=== PATIENT | male | born 1960 | race African-American/Black ===

== ENCOUNTER 2016-05-28 17:06 | Inpatient (IN) | payer MEDICAID ==
[~2016-05-28] VITALS: Ht 180.3 cm; Wt 176.9 kg
[2016-05-28] MEDS ORDERED: SODIUM CHLORIDE 0.9% 1000ML BAG (SEPSIS BOLUS) IV ONE (18:30)
[2016-05-28 19:04] LABS: CLARITY URINE CLEAR (CLEAR); COLOR URINE YELLOW (YELLOW); GLUCOSE URINE NEGATIVE (NEGATIVE); KETONES URINE TRACE (NEGATIVE); LEUKOCYTE ESTERASE URINE NEGATIVE (NEGATIVE); NITRITE URINE NEGATIVE (NEGATIVE); OCCULT BLOOD URINE NEGATIVE (NEGATIVE); PROTEIN URINE 1+ (NEGATIVE); SPECIFIC GRAVITY URINE 1.016 (1.005-1.030)
[2016-05-28 19:21] LABS: BACTERIA URINE TRACE; MUCUS URINE TRACE /lpf (NONE/TRACE); RBC URINE 0-2 /hpf (0-2); SQUAMOUS EPITHELIAL CELL URINE FEW /lpf (RARE/1+); WBC URINE 0-2 /hpf (0-2)
[2016-05-28 19:26] LABS: BASOPHILS % 0.7 % (0.0-2.0); DIFFERENTIAL COMMENT 0; EOSINOPHILS % 0.1 % (0.0-5.0); HEMATOCRIT. 48.2 % (42.0-52.0); HEMOGLOBIN. 14.7 g/dL (14.0-18.0); LYMPHOCYTES % 14.7 % (20.0-50.0); MEAN CORPUSCULAR HEMOGLOBIN 24.1 pg (28.0-32.0); MEAN CORPUSCULAR HGB CONC 30.4 g/dL (31.0-37.0); MEAN CORPUSCULAR VOLUME 79.4 fL (80.0-94.0); MEAN PLATELET VOLUME 9.6 fl (7.4-10.4); MONOCYTES % 9.1 % (2.0-8.0); NEUTROPHILS % 75.4 % (40.0-76.0); PLATELET 241 x1000/uL (130-400); RED BLOOD CELL COUNT 6.07 mill/uL (4.7-6.1); WHITE BLOOD COUNT 7.3 x1000/uL (4.5-11.0)
[2016-05-28 19:31] LABS: INR 1.3; PROTHROMBIN TIME 13.2 sec
[2016-05-28 19:41] LABS: ALANINE AMINOTRANSFERASE 97 IU/L (13-61); ANION GAP 14; CALCIUM 8.3 mg/dL (8.5-10.1); CARBON DIOXIDE 35 mEq/L (21-32); CHLORIDE 99 mEq/L (98-107); INDEX HEMOLYSI 1 (1-3); INDEX ICTERIC 1 (1-4); INDEX LIPEMIC 1 (1-3); UREA NITROGEN BLOOD 40 mg/dL (7-21); eGFR 55 mL/min (>60)
[2016-05-28 19:42] LABS: LACTIC ACID 2.4 mmol/L (0.4-2.0)
[2016-05-28 19:48] LABS: NT PRO B-TYPE NATRIURETIC PEP 8925 pg/mL (5-125)
[2016-05-28 19:52] LABS: TROPONIN I 0.43 ng/mL (0.00-0.04)
[2016-05-28] MEDS ORDERED: PIPERACILLIN SODIUM/TAZOBACTAM 4.5 G in DEXT 5% WATER 100 ML IV NR (20:30)
[2016-05-28] MEDS ORDERED: ASPIRIN 325MG EC TABLET PO NR (21:30)
[2016-05-28] MEDS ORDERED: FUROSEMIDE 100MG/10ML VIAL IVP ONE (21:30)
[2016-05-28] MEDS ORDERED: AMIODARONE HCL 150 MG in DEXT 5% WATER 100 ML IV ONE (21:45)
[2016-05-28] MEDS ORDERED: VANCOMYCIN 1 G PREMIX 200 ML IV SCH (22:00)
[2016-05-29] VITALS (14 sets, daily range): BP systolic 100–149; BP diastolic 50–104
[2016-05-29] MEDS ORDERED: DIPHENHYDRAMINE 50MG/ML VIAL IV PRN
[2016-05-29] MEDS ORDERED: HYDROCODONE/ACETAMINOPHEN 5/325MG TABLET PO PRN
[2016-05-29] MEDS ORDERED: ACETAMINOPHEN 325MG TABLET PO PRN
[2016-05-29] MEDS ORDERED: ONDANSETRON HCL 4MG/2ML VIAL IV PRN
[2016-05-29] MEDS ORDERED: MAGNESIUM/ALUMINUM HYDROXIDE/SIMETHICONE 30ML UDC PO PRN
[2016-05-29] MEDS ORDERED: ACETAMINOPHEN 650MG/20.3ML UDC GT PRN
[2016-05-29] MEDS ORDERED: NA PHOS,M-B/NA PHOS,DI-BA ENEMA 118ML PR PRN
[2016-05-29] MEDS ORDERED: GUAIFENESIN 200MG/10ML SUGAR FREE UDC PO PRN
[2016-05-29] MEDS ORDERED: CLONIDINE 0.1MG TABLET PO PRN
[2016-05-29] MEDS ORDERED: IPRATROPIUM/ALBUTEROL 0.5-3(2.5)MG/3ML NEB INH PRN
[2016-05-29] MEDS ORDERED: DOCUSATE SODIUM 100MG CAPSULE PO PRN
[2016-05-29] MEDS ORDERED: ACETAMINOPHEN 650MG SUPP PR PRN
[2016-05-29] MEDS: BUDESONIDE 0.5MG/2ML NEB HHN SCH (00:12)
[2016-05-29 00:23] LABS: TROPONIN I 0.39 ng/mL (0.00-0.04)
[2016-05-29] MEDS: SODIUM CHLORIDE 0.9% INJ 3ML FLUSH IVF SCH ×3 (05:29→21:50)
[2016-05-29] MEDS: DILTIAZEM HCL 30MG TABLET PO SCH ×3 (05:29→21:49)
[2016-05-29 06:46] LABS: BASOPHILS % 0.7 % (0.0-2.0); DIFFERENTIAL COMMENT 0; EOSINOPHILS % 0.1 % (0.0-5.0); HEMATOCRIT. 50.6 % (42.0-52.0); LYMPHOCYTES % 15.9 % (20.0-50.0); MEAN CORPUSCULAR HEMOGLOBIN 23.8 pg (28.0-32.0); MEAN CORPUSCULAR HGB CONC 29.7 g/dL (31.0-37.0); MEAN CORPUSCULAR VOLUME 80.1 fL (80.0-94.0); MEAN PLATELET VOLUME 9.3 fl (7.4-10.4); MONOCYTES % 9.4 % (2.0-8.0); NEUTROPHILS % 73.9 % (40.0-76.0); PLATELET 217 x1000/uL (130-400); RED BLOOD CELL COUNT 6.32 mill/uL (4.7-6.1); RED CELL DISTRIBUTION WIDTH 19.4 % (11.6-14.6); WHITE BLOOD COUNT 7.7 x1000/uL (4.5-11.0)
[2016-05-29 07:43] LABS: ALANINE AMINOTRANSFERASE 86 IU/L (13-61); ANION GAP 16; CALCIUM 7.8 mg/dL (8.5-10.1); CARBON DIOXIDE 35 mEq/L (21-32); CHLORIDE 99 mEq/L (98-107); INDEX HEMOLYSI 1 (1-3); INDEX ICTERIC 1 (1-4); INDEX LIPEMIC 1 (1-3); LDL CHOLESTEROL 112 mg/dL (5-100); TRIGLYCERIDE 138 mg/dL (0-150); UREA NITROGEN BLOOD 41 mg/dL (7-21); eGFR 59 mL/min (>60)
[2016-05-29 07:48] LABS: CREATINE KINASE 120 IU/L (39-308); HDL CHOLESTEROL 21 mg/dL (40-59); TROPONIN I 0.28 ng/mL (0.00-0.04)
[2016-05-29] MEDS: FUROSEMIDE 40MG/4ML VIAL IV SCH (08:36)
[2016-05-29 11:17] LABS: BG BASE EXCESS 7.4 mmol/L (-2.0-2.0); BG CARBOXYHEMOGLOBIN 1.5 % (0.5-1.5); BG DEOXYHEMOGLOBIN 5.6 % (0.0-5.0); BG FRACTION INSPIRED OXYGEN 40; BG HCO3 ACT 40.8 mmol/L (22.0-26.0); BG METHEMOGLOBIN 0.4 % (0.0-1.5); BG OXYGEN SATURATION 94.3 % (92.0-98.5); BG OXYHEMOGLOBIN 92.5 % (94.0-97.0); BG PCO2 109.8 mmHg (35.0-45.0); BG PH 7.188 (7.350-7.450); BG PO2 86.4 mmHg (75.0-100.0); BG SAMPLE SITE RIGHT BRACHIAL; BG TOTAL HEMOGLOBIN 15.9 g/dL (12.0-18.0); BG VENT MODE MASK - SIMPLE
[2016-05-29 13:40] LABS: BG BASE EXCESS 7.5 mmol/L (-2.0-2.0); BG BILEVEL POS AIRWAY PRESSURE 18/8; BG CARBOXYHEMOGLOBIN 1.7 % (0.5-1.5); BG FRACTION INSPIRED OXYGEN 40; BG HCO3 ACT 39.5 mmol/L (22.0-26.0); BG METHEMOGLOBIN 0.4 % (0.0-1.5); BG OXYGEN SATURATION 94.9 % (92.0-98.5); BG OXYHEMOGLOBIN 92.9 % (94.0-97.0); BG PCO2 97.9 mmHg (35.0-45.0); BG PH 7.224 (7.350-7.450); BG PO2 85.9 mmHg (75.0-100.0); BG SAMPLE SITE RIGHT BRACHIAL; BG TOTAL HEMOGLOBIN 15.2 g/dL (12.0-18.0); BG VENT MODE MASK - BIPAP
[2016-05-29] MEDS ORDERED: IOHEXOL-350 100 ML BOTTLE ONE (13:58)
[2016-05-29] MEDS ORDERED: SODIUM CHLORIDE 0.9% 10ML VIAL ONE (13:58)
[2016-05-29 14:15] LABS: *AMPHETAMINES SCREEN URINE NEGATIVE (NEGATIVE); *BARBITURATES SCREEN URINE NEGATIVE (NEGATIVE); *BENZODIAZEPINES SCREEN URINE NEGATIVE (NEGATIVE); *COCAINE SCREEN URINE NEGATIVE (NEGATIVE); CANNABINOID URINE SCREEN NEGATIVE (NEGATIVE); ECSTASY MDMA SCREEN URINE NEGATIVE (NEGATIVE); METHADONE URINE SCREEN NEGATIVE (NEGATIVE); OPIATES URINE SCREEN NEGATIVE (NEGATIVE); PHENCYCLIDINE URINE SCREEN NEGATIVE (NEGATIVE)
[2016-05-29] MEDS ORDERED: IPRATROPIUM/ALBUTEROL 0.5-3(2.5)MG/3ML NEB HHN PRN (14:45)
[2016-05-29] MEDS ORDERED: AMLODIPINE 10MG TABLET PO SCH (14:45)
[2016-05-29] MEDS: METHYLPREDNISOLONE SOD SUCC 40 MG/ML VIAL IV SCH ×2 (15:26→21:49)
[2016-05-29 16:42] LABS: TROPONIN I 0.22 ng/mL (0.00-0.04)
[2016-05-29 18:52] LABS: T4 FREE 1.18 ng/dL (0.76-1.46); THYROID STIMULATING HORMONE 0.49 uIU/mL (0.36-3.74)
[2016-05-29] MEDS: ENOXAPARIN 40MG/0.4ML SYR SUBCUT SCH (21:50)
[2016-05-30] VITALS (9 sets, daily range): BP systolic 94–134; BP diastolic 51–90
[2016-05-30] MEDS: IPRATROPIUM/ALBUTEROL 0.5-3(2.5)MG/3ML NEB HHN SCH ×7 (00:12→23:50)
[2016-05-30] MEDS: DILTIAZEM HCL 30MG TABLET PO SCH ×3 (06:18→21:22)
[2016-05-30] MEDS: SODIUM CHLORIDE 0.9% INJ 3ML FLUSH IVF SCH ×3 (06:18→20:44)
[2016-05-30] MEDS: METHYLPREDNISOLONE SOD SUCC 40 MG/ML VIAL IV SCH (06:18)
[2016-05-30 07:43] LABS: BASOPHILS % 0.1 % (0.0-2.0); HEMATOCRIT. 45.4 % (42.0-52.0); HEMOGLOBIN. 13.7 g/dL (14.0-18.0); LYMPHOCYTES % 7.8 % (20.0-50.0); MEAN CORPUSCULAR HEMOGLOBIN 24.1 pg (28.0-32.0); MEAN CORPUSCULAR HGB CONC 30.2 g/dL (31.0-37.0); MEAN CORPUSCULAR VOLUME 79.8 fL (80.0-94.0); MEAN PLATELET VOLUME 9.1 fl (7.4-10.4); MONOCYTES % 2.3 % (2.0-8.0); NEUTROPHILS % 89.8 % (40.0-76.0); PLATELET 184 x1000/uL (130-400); RED BLOOD CELL COUNT 5.69 mill/uL (4.7-6.1); RED CELL DISTRIBUTION WIDTH 19.1 % (11.6-14.6); WHITE BLOOD COUNT 3.2 x1000/uL (4.5-11.0)
[2016-05-30 08:05] LABS: DIFFERENTIAL COMMENT 1
[2016-05-30 08:10] LABS: CHLORIDE 98 mEq/L (98-107); INDEX HEMOLYSI 3 (1-3); INDEX ICTERIC 1 (1-4); INDEX LIPEMIC 1 (1-3)
[2016-05-30 08:41] LABS: ALANINE AMINOTRANSFERASE 81 IU/L (13-61); ALBUMIN 2.8 g/dL (3.4-5.0); ANION GAP 15; CALCIUM 8.4 mg/dL (8.5-10.1); CARBON DIOXIDE 33 mEq/L (21-32); UREA NITROGEN BLOOD 33 mg/dL (7-21); eGFR > 60 mL/min (>60)
[2016-05-30] MEDS: BUDESONIDE 0.5MG/2ML NEB HHN SCH ×2 (09:37→20:00)
[2016-05-30 09:47] LABS: BG BASE EXCESS 7.4 mmol/L (-2.0-2.0); BG CARBOXYHEMOGLOBIN 1.4 % (0.5-1.5); BG DEOXYHEMOGLOBIN 6.3 % (0.0-5.0); BG FRACTION INSPIRED OXYGEN 36; BG HCO3 ACT 38.6 mmol/L (22.0-26.0); BG METHEMOGLOBIN 0.2 % (0.0-1.5); BG OXYGEN SATURATION 93.6 % (92.0-98.5); BG OXYHEMOGLOBIN 92.1 % (94.0-97.0); BG PCO2 90.2 mmHg (35.0-45.0); BG PH 7.249 (7.350-7.450); BG PO2 76.3 mmHg (75.0-100.0); BG SAMPLE SITE LEFT RADIAL; BG TOTAL HEMOGLOBIN 15.1 g/dL (12.0-18.0); BG VENT MODE NASAL CANNULA
[2016-05-30] MEDS: FUROSEMIDE 40MG/4ML VIAL IV SCH (09:58)
[2016-05-30] MEDS: PANTOPRAZOLE SODIUM 40 MG/VIAL IV SCH (09:58)
[2016-05-30] MEDS: ASPIRIN 81MG TABLET PO SCH (09:59)
[2016-05-30] MEDS: ENOXAPARIN 40MG/0.4ML SYR SUBCUT SCH ×2 (10:01→20:43)
[2016-05-30] MEDS: AMLODIPINE 10MG TABLET PO SCH (10:01)
[2016-05-30] MEDS: PREDNISONE 20MG TABLET PO SCH (17:48)
[2016-05-31] VITALS (9 sets, daily range): BP systolic 99–138; BP diastolic 53–90
[2016-05-31] MEDS: IPRATROPIUM/ALBUTEROL 0.5-3(2.5)MG/3ML NEB HHN SCH ×6 (04:28→23:51)
[2016-05-31] MEDS: SODIUM CHLORIDE 0.9% INJ 3ML FLUSH IVF SCH ×3 (05:37→22:59)
[2016-05-31] MEDS: DILTIAZEM HCL 30MG TABLET PO SCH ×3 (05:38→23:07)
[2016-05-31] MEDS: BUDESONIDE 0.5MG/2ML NEB HHN SCH ×2 (07:57→20:15)
[2016-05-31] MEDS: ASPIRIN 81MG TABLET PO SCH (08:27)
[2016-05-31] MEDS: PREDNISONE 20MG TABLET PO SCH ×2 (08:27→18:08)
[2016-05-31] MEDS: AMLODIPINE 10MG TABLET PO SCH (08:27)
[2016-05-31] MEDS: PANTOPRAZOLE SODIUM 40 MG/VIAL IV SCH (08:27)
[2016-05-31] MEDS: FUROSEMIDE 40MG/4ML VIAL IV SCH (08:27)
[2016-05-31] MEDS: ENOXAPARIN 40MG/0.4ML SYR SUBCUT SCH (08:28)
[2016-05-31 09:17] LABS: BASOPHILS % 0.2 % (0.0-2.0); DIFFERENTIAL COMMENT 0; HEMOGLOBIN. 13.6 g/dL (14.0-18.0); LYMPHOCYTES % 11.5 % (20.0-50.0); MEAN CORPUSCULAR HEMOGLOBIN 23.5 pg (28.0-32.0); MEAN CORPUSCULAR HGB CONC 29.6 g/dL (31.0-37.0); MEAN CORPUSCULAR VOLUME 79.2 fL (80.0-94.0); MEAN PLATELET VOLUME 8.9 fl (7.4-10.4); MONOCYTES % 6.4 % (2.0-8.0); NEUTROPHILS % 81.9 % (40.0-76.0); PLATELET 189 x1000/uL (130-400); RED CELL DISTRIBUTION WIDTH 18.6 % (11.6-14.6); WHITE BLOOD COUNT 6.1 x1000/uL (4.5-11.0)
[2016-05-31] MEDS ORDERED: P20 PO (09:22)
[2016-05-31] MEDS ORDERED: PULM50 HHN (09:22)
[2016-05-31] MEDS ORDERED: DILT30TA38 PO (09:22)
[2016-05-31] MEDS ORDERED: ASPI81TA2 PO (09:22)
[2016-05-31] MEDS ORDERED: AMLO10TA80 PO (09:22)
[2016-05-31] MEDS ORDERED: albuterol mdi INH (09:22)
[2016-05-31 09:39] LABS: ANION GAP 9; CALCIUM 8.7 mg/dL (8.5-10.1); CHLORIDE 94 mEq/L (98-107); INDEX HEMOLYSI 2 (1-3); INDEX ICTERIC 1 (1-4); INDEX LIPEMIC 1 (1-3); UREA NITROGEN BLOOD 28 mg/dL (7-21); eGFR > 60 mL/min (>60)
[2016-05-31 09:42] LABS: CARBON DIOXIDE 43 mEq/L (21-32)
[2016-05-31 12:48] LABS: BG BASE EXCESS 14.3 mmol/L (-2.0-2.0); BG CARBOXYHEMOGLOBIN 1.4 % (0.5-1.5); BG DEOXYHEMOGLOBIN 16.1 % (0.0-5.0); BG HCO3 ACT 42.5 mmol/L (22.0-26.0); BG METHEMOGLOBIN 0.3 % (0.0-1.5); BG OXYGEN SATURATION 83.6 % (92.0-98.5); BG OXYHEMOGLOBIN 82.2 % (94.0-97.0); BG PCO2 68.5 mmHg (35.0-45.0); BG PH 7.411 (7.350-7.450); BG PO2 46.3 mmHg (75.0-100.0); BG SAMPLE SITE RIGHT RADIAL; BG TOTAL HEMOGLOBIN 14.9 g/dL (12.0-18.0); BG VENT MODE ROOM AIR
[2016-06-01] VITALS (7 sets, daily range): BP systolic 104–146; BP diastolic 55–80
[2016-06-01] MEDS: IPRATROPIUM/ALBUTEROL 0.5-3(2.5)MG/3ML NEB HHN SCH ×5 (04:12→23:09)
[2016-06-01] MEDS: SODIUM CHLORIDE 0.9% INJ 3ML FLUSH IVF SCH ×3 (06:02→21:39)
[2016-06-01] MEDS: DILTIAZEM HCL 30MG TABLET PO SCH ×3 (06:02→21:40)
[2016-06-01] MEDS ORDERED: FURO-151 PO (07:30)
[2016-06-01] MEDS: AMLODIPINE 10MG TABLET PO SCH (08:22)
[2016-06-01] MEDS: ASPIRIN 81MG TABLET PO SCH (08:28)
[2016-06-01] MEDS: PANTOPRAZOLE SODIUM 40 MG/VIAL IV SCH (08:28)
[2016-06-01] MEDS: ENOXAPARIN 40MG/0.4ML SYR SUBCUT SCH (08:28)
[2016-06-01] MEDS: FUROSEMIDE 40MG/4ML VIAL IV SCH (08:28)
[2016-06-01] MEDS: PREDNISONE 20MG TABLET PO SCH ×2 (08:28→17:30)
[2016-06-01] MEDS: BUDESONIDE 0.5MG/2ML NEB HHN SCH ×2 (09:04→23:09)
[2016-06-01 09:49] LABS: BASOPHILS % 0.5 % (0.0-2.0); DIFFERENTIAL COMMENT 0; EOSINOPHILS % 0.7 % (0.0-5.0); HEMATOCRIT. 45.5 % (42.0-52.0); HEMOGLOBIN. 13.8 g/dL (14.0-18.0); MEAN CORPUSCULAR HEMOGLOBIN 23.7 pg (28.0-32.0); MEAN CORPUSCULAR HGB CONC 30.4 g/dL (31.0-37.0); MEAN CORPUSCULAR VOLUME 77.7 fL (80.0-94.0); MEAN PLATELET VOLUME 8.9 fl (7.4-10.4); NEUTROPHILS % 69.8 % (40.0-76.0); PLATELET 181 x1000/uL (130-400); RED BLOOD CELL COUNT 5.85 mill/uL (4.7-6.1); RED CELL DISTRIBUTION WIDTH 19.4 % (11.6-14.6); WHITE BLOOD COUNT 5.4 x1000/uL (4.5-11.0)
[2016-06-01] MEDS ORDERED: TERBUTALINE SULFATE 1MG/ML VIAL SUBCUT NR (10:00)
[2016-06-01 10:21] LABS: ALANINE AMINOTRANSFERASE 66 IU/L (13-61); ALBUMIN 2.9 g/dL (3.4-5.0); ANION GAP 13; CALCIUM 8.6 mg/dL (8.5-10.1); CHLORIDE 92 mEq/L (98-107); INDEX HEMOLYSI 2 (1-3); INDEX ICTERIC 2 (1-4); INDEX LIPEMIC 1 (1-3); UREA NITROGEN BLOOD 23 mg/dL (7-21); eGFR > 60 mL/min (>60)
[2016-06-01 10:23] LABS: CARBON DIOXIDE 41 mEq/L (21-32)
[2016-06-01] MEDS: THEOPHYLLINE ANHYDROUS 80 MG/15 ML 120ML PO SCH ×2 (13:47→21:39)
[2016-06-02] VITALS (8 sets, daily range): BP systolic 105–137; BP diastolic 49–92
[2016-06-02] MEDS: IPRATROPIUM/ALBUTEROL 0.5-3(2.5)MG/3ML NEB HHN SCH ×4 (04:40→20:58)
[2016-06-02] MEDS: SODIUM CHLORIDE 0.9% INJ 3ML FLUSH IVF SCH ×3 (05:28→21:07)
[2016-06-02] MEDS: DILTIAZEM HCL 30MG TABLET PO SCH ×3 (05:38→21:06)
[2016-06-02] MEDS: THEOPHYLLINE ANHYDROUS 80 MG/15 ML 120ML PO SCH (05:42)
[2016-06-02] MEDS: AMLODIPINE 10MG TABLET PO SCH (08:03)
[2016-06-02] MEDS: PREDNISONE 20MG TABLET PO SCH (08:03)
[2016-06-02] MEDS: PANTOPRAZOLE SODIUM 40 MG/VIAL IV SCH (08:03)
[2016-06-02] MEDS: FUROSEMIDE 40MG/4ML VIAL IV SCH (08:04)
[2016-06-02] MEDS: ASPIRIN 81MG TABLET PO SCH (08:04)
[2016-06-02] MEDS: ENOXAPARIN 40MG/0.4ML SYR SUBCUT SCH (08:04)
[2016-06-02] MEDS: BUDESONIDE 0.5MG/2ML NEB HHN SCH ×2 (08:06→20:58)
[2016-06-02] MEDS ORDERED: DIGOXIN 500MCG/2ML AMP IV NR (11:45)
[2016-06-02] MEDS ORDERED: DILTIAZEM HCL 125 MG in DEXT 5% WATER 100 ML IV ONE (14:00)
[2016-06-02 20:37] LABS: BASOPHILS % 0.6 % (0.0-2.0); DIFFERENTIAL COMMENT 0; HEMATOCRIT. 48.2 % (42.0-52.0); HEMOGLOBIN. 14.8 g/dL (14.0-18.0); MEAN CORPUSCULAR HEMOGLOBIN 23.4 pg (28.0-32.0); MEAN CORPUSCULAR HGB CONC 30.6 g/dL (31.0-37.0); MEAN CORPUSCULAR VOLUME 76.5 fL (80.0-94.0); MEAN PLATELET VOLUME 8.9 fl (7.4-10.4); MONOCYTES % 6.6 % (2.0-8.0); NEUTROPHILS % 83.8 % (40.0-76.0); PLATELET 172 x1000/uL (130-400); RED CELL DISTRIBUTION WIDTH 19.6 % (11.6-14.6); WHITE BLOOD COUNT 5.6 x1000/uL (4.5-11.0)
[2016-06-02 20:41] LABS: CHLORIDE 89 mEq/L (98-107); INDEX HEMOLYSI 1 (1-3); INDEX ICTERIC 2 (1-4); INDEX LIPEMIC 1 (1-3)
[2016-06-02 20:51] LABS: ALANINE AMINOTRANSFERASE 69 IU/L (13-61); ALBUMIN 3.1 g/dL (3.4-5.0); ANION GAP 12; CALCIUM 8.9 mg/dL (8.5-10.1); MAGNESIUM 2.1 mg/dL (1.8-2.4); UREA NITROGEN BLOOD 27 mg/dL (7-21); eGFR > 60 mL/min (>60)
[2016-06-02 20:58] LABS: CARBON DIOXIDE 43 mEq/L (21-32)
[2016-06-03] VITALS (8 sets, daily range): BP systolic 102–151; BP diastolic 52–113
[2016-06-03] MEDS: IPRATROPIUM/ALBUTEROL 0.5-3(2.5)MG/3ML NEB HHN SCH ×6 (00:44→21:20)
[2016-06-03] MEDS: SODIUM CHLORIDE 0.9% INJ 3ML FLUSH IVF SCH ×3 (06:00→20:58)
[2016-06-03] MEDS: PANTOPRAZOLE 40MG DR TABLET PO SCH (06:38)
[2016-06-03] MEDS: DILTIAZEM HCL 30MG TABLET PO SCH ×3 (06:38→20:57)
[2016-06-03] MEDS: BUDESONIDE 0.5MG/2ML NEB HHN SCH ×2 (07:49→21:19)
[2016-06-03] MEDS: AMLODIPINE 10MG TABLET PO SCH (08:51)
[2016-06-03] MEDS: FUROSEMIDE 40MG/4ML VIAL IV SCH (08:51)
[2016-06-03] MEDS: ENOXAPARIN 40MG/0.4ML SYR SUBCUT SCH (08:51)
[2016-06-03] MEDS: ASPIRIN 81MG TABLET PO SCH (08:51)
[2016-06-03] MEDS: PREDNISONE 20MG TABLET PO SCH (08:51)
[2016-06-04] VITALS (10 sets, daily range): BP systolic 91–127; BP diastolic 43–98
[2016-06-04] MEDS: IPRATROPIUM/ALBUTEROL 0.5-3(2.5)MG/3ML NEB HHN SCH ×7 (00:33→23:52)
[2016-06-04] MEDS: DILTIAZEM HCL 30MG TABLET PO SCH ×3 (06:12→21:09)
[2016-06-04] MEDS: PANTOPRAZOLE 40MG DR TABLET PO SCH (06:12)
[2016-06-04] MEDS: SODIUM CHLORIDE 0.9% INJ 3ML FLUSH IVF SCH ×3 (06:13→21:09)
[2016-06-04] MEDS: AMLODIPINE 10MG TABLET PO SCH (09:00)
[2016-06-04] MEDS: BUDESONIDE 0.5MG/2ML NEB HHN SCH ×2 (09:04→19:32)
[2016-06-04] MEDS: PREDNISONE 20MG TABLET PO SCH (09:57)
[2016-06-04] MEDS: ENOXAPARIN 40MG/0.4ML SYR SUBCUT SCH ×2 (09:57→21:09)
[2016-06-04] MEDS: ASPIRIN 81MG TABLET PO SCH (09:57)
[2016-06-04] MEDS: FUROSEMIDE 40MG/4ML VIAL IV SCH (09:59)
[2016-06-05] VITALS (9 sets, daily range): BP systolic 76–135; BP diastolic 50–87
[2016-06-05] MEDS: IPRATROPIUM/ALBUTEROL 0.5-3(2.5)MG/3ML NEB HHN SCH ×5 (03:07→20:44)
[2016-06-05] MEDS: SODIUM CHLORIDE 0.9% INJ 3ML FLUSH IVF SCH ×3 (06:39→20:59)
[2016-06-05] MEDS: PANTOPRAZOLE 40MG DR TABLET PO SCH (06:39)
[2016-06-05] MEDS: DILTIAZEM HCL 30MG TABLET PO SCH ×3 (06:39→21:13)
[2016-06-05] MEDS: ASPIRIN 81MG TABLET PO SCH (08:20)
[2016-06-05] MEDS: ENOXAPARIN 40MG/0.4ML SYR SUBCUT SCH ×2 (08:20→20:59)
[2016-06-05] MEDS: AMLODIPINE 10MG TABLET PO SCH (08:20)
[2016-06-05] MEDS: FUROSEMIDE 40MG/4ML VIAL IV SCH (08:20)
[2016-06-05] MEDS: PREDNISONE 20MG TABLET PO SCH (08:20)
[2016-06-05] MEDS: BUDESONIDE 0.5MG/2ML NEB HHN SCH (20:43)
[2016-06-06] VITALS (10 sets, daily range): BP systolic 98–125; BP diastolic 47–71
[2016-06-06] MEDS: IPRATROPIUM/ALBUTEROL 0.5-3(2.5)MG/3ML NEB HHN SCH ×5 (00:17→16:00)
[2016-06-06] MEDS: DILTIAZEM HCL 30MG TABLET PO SCH ×2 (05:50→14:00)
[2016-06-06] MEDS: SODIUM CHLORIDE 0.9% INJ 3ML FLUSH IVF SCH (05:50)
[2016-06-06] MEDS: PANTOPRAZOLE 40MG DR TABLET PO SCH (06:42)
[2016-06-06 08:00] LABS: BG BASE EXCESS 10.5 mmol/L (-2.0-2.0); BG CARBOXYHEMOGLOBIN 2.1 % (0.5-1.5); BG DEOXYHEMOGLOBIN 9.7 % (0.0-5.0); BG FRACTION INSPIRED OXYGEN 21; BG METHEMOGLOBIN 0.1 % (0.0-1.5); BG OXYGEN SATURATION 90.1 % (92.0-98.5); BG OXYHEMOGLOBIN 88.1 % (94.0-97.0); BG PCO2 55.9 mmHg (35.0-45.0); BG PH 7.439 (7.350-7.450); BG PO2 56.3 mmHg (75.0-100.0); BG SAMPLE SITE RIGHT BRACHIAL; BG TOTAL HEMOGLOBIN 15.2 g/dL (12.0-18.0); BG VENT MODE ROOM AIR
[2016-06-06] MEDS: AMLODIPINE 10MG TABLET PO SCH (09:28)
[2016-06-06] MEDS: FUROSEMIDE 40MG/4ML VIAL IV SCH (09:28)
[2016-06-06] MEDS: ASPIRIN 81MG TABLET PO SCH (09:28)
[2016-06-06] MEDS: PREDNISONE 20MG TABLET PO SCH (09:28)
[2016-06-06] MEDS: ENOXAPARIN 40MG/0.4ML SYR SUBCUT SCH (09:29)
[2016-06-06] MEDS: BUDESONIDE 0.5MG/2ML NEB HHN SCH (09:30)
[2016-06-06] MEDS ORDERED: DIGOXIN 500MCG/2ML AMP IV NR (12:00)
[2016-06-07] MEDS ORDERED: PREDNISONE 20MG TABLET PO SCH (09:00)
== END 2016-06-06 17:54 | disposition home or self-care (01) | DRG 133 ==
LOC: ER 18:07 → 5EST 05-29 00:34
PROVIDERS: ADMIT Family Medicine; ATTEND Family Medicine
PROC: 5A09457 Assistance with Respiratory Ventilation, 24-96 Consecutive Hours, Continuous Positive Airway Pressure (ICD-10-PCS; principal; 2016-05-29)
DX: J96.01 Acute respiratory failure with hypoxia (principal); I50.33 Acute on chronic diastolic (congestive) heart failure; E87.2 Acidosis; I42.0 Dilated cardiomyopathy; E46 Unspecified protein-calorie malnutrition; I27.2 Other secondary pulmonary hypertension; R17 Unspecified jaundice; E66.2 Morbid (severe) obesity with alveolar hypoventilation; J96.02 Acute respiratory failure with hypercapnia; I48.92 Unspecified atrial flutter; J44.1 Chronic obstructive pulmonary disease with (acute) exacerbation; N18.9 Chronic kidney disease, unspecified; Z60.2 Problems related to living alone; E78.5 Hyperlipidemia, unspecified; G47.33 Obstructive sleep apnea (adult) (pediatric); Z68.43 Body mass index [BMI] 50.0-59.9, adult; Z59.0 Homelessness
CPT/HCPCS: 36415; 36600; 71010; 71275; 76770; 80048; 80053; 80061; 80305; 81001; 82375; 82550; 82553; 82805; 83036; 83605; 83735; 83880; 84100; 84439; 84443; 84484; 85025; 85379; 85610; 87040; 87086; 93005; 93306; 93970; 94640; 94660; 96374; 96375; 97116; 97162; 99291; A4216; C9113; J0282; J1160; J1650; J1940; J2543; J2920; J3105; J3370; J3490; J7030; J7060; J7512; J7620; J7626; Q9967